=== PATIENT | male | born 1945 | race Hispanic/Latino ===

== ENCOUNTER 2020-10-03 13:17 | Outpatient (CLI) | payer MEDICARE, BC ==
[2020-10-03 14:50] LABS: #Eosinphils 0.1 10x3/uL (0.0-0.5); #Monocytes 0.4 10x3/uL (0.0-1.1); #Neutrophils 2.7 10x3/uL (1.5-8.4); %Basophils 0.9 % (0.0-2.0); %Eosinophils 2.4 % (0.0-6.0); %Lymphocytes 30.3 % (18.0-47.0); %Monocytes 8.4 % (0.0-10.0); %Neutrophils 57.8 % (40.0-75.0); Hemoglobin 10.9 g/dL (13.5-17.5); Mean Corpuscular HGB CONC 32.7 g/dL (32.0-36.0); Mean Corpuscular Hemoglobin 30.4 pg (27.0-33.0); Mean Platelet Volume 10.6 fl (7.4-10.4); Platelet Count 233 10x3/uL (150-450); RBC Distribution Width 14.3 % (11.5-14.5); Red Blood Cell (RBC) Count 3.58 10x6/uL (4.32-5.72); White Blood Cell (WBC) Count 4.6 10x3/uL (3.5-10.5)
[2020-10-03 15:06] LABS: Anion Gap 9 mmol/L (10-20); BUN (Urea Nitrogen) 22 mg/dL (8.4-25.7); Calc. Creatinine Clearance 0 mL/min (70-130); Calcium 9.7 mg/dL (7.8-10.44); Carbon Dioxide 31 mmol/L (23-31); Chloride 103 mmol/L (98-107); Glucose 116 mg/dL (83-110); Potassium 4.4 mmol/L (3.5-5.1); Sodium 139 mmol/L (136-145)
[2020-10-04 03:09] LABS: SARS-CoV-2 PCR by NAA Not Detected (NotDetected)
--- NOTE | 2020-10-05 11:19 | HP ---
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 During evaluation, he was found to have bilateral critical carotid artery disease. The patient was referred by Dr. Bennett in [place] for further evaluation. PAST MEDICAL HISTORY: Includes the above-noted [place] Rudolph syndrome 2, carotid stenosis, prediabetes, hypertension. 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 He was a half pack a day smoker up until 18 years ago. He was incarcerated for about 7 years and currently lives alone. ALLERGIES: NONE KNOWN. MEDICATIONS: Include: 1. Aspirin 81 daily. 2. Plavix 75 daily. 3. He was also taking losartan 25 daily. 4. Amlodipine 5 b.i.d., but these were recently held due to some relative low blood pressures. REVIEW OF SYSTEMS: The patient denies fatigue, chest pain, weight loss, or claudication. In fact, the patient did marathon runs in the past. He denies any dyspnea on exertion or irregular heart rhythm. He has no abdominal complaints. He has nocturia x3. He currently does have some balance difficulties, but is able to speak well. He does admit to some dizziness. PHYSICAL EXAMINATION: VITAL SIGNS: His heart rate is 50, blood pressure 100/56, height 5 feet 11 inches, weight 154. NECK: Bilateral bruits, left louder than right. He is wearing an eye patch on his right eye. CARDIAC: Regular rate and rhythm. No murmurs. LUNGS: Clear to auscultation. ABDOMEN: He has a PEG tube and that is how he maintains hydration and nutrition. EXTREMITIES: He has no peripheral edema. He does have splint on his right lower leg. He has palpable femoral pulses bilaterally as well as a left posterior tibial pulse. The splint on his right leg prevents me from checking pedal pulses on the right foot. At this time, the patient has had a CTA of his neck showing a near-complete occlusion of the proximal cervical right internal carotid artery as well as severe stenosis of the cervical left internal carotid artery. There also appears to be some focal stenosis at the origin of the left common carotid artery. PLAN: At this time as discussed with the patient as well as his legal guardian, plan on TCAR, stent placement in the right internal carotid artery and risks including stroke, have been reviewed and options including medical management with stroke rated up to 50%, if this was to occlude at home. All parties are agreeable to proceed. Job ID: [id number]
== END 2020-10-03 13:18 | disposition home or self-care (01) ==
LOC: LABBT 13:17
PROVIDERS: ATTEND Thoracic Surgery (Cardiothoracic Vascular Surgery)
DX: Z01.818 Encounter for other preprocedural examination (principal); I65.29 Occlusion and stenosis of unspecified carotid artery; Z20.822 Contact with and (suspected) exposure to COVID-19
CPT/HCPCS: 80048; 85025; 93005; U0003; U0005; 87635; 93010

== ENCOUNTER 2020-10-03 13:30 | Inpatient (IN) | payer MEDICARE, BC ==
[2020-10-06] MEDS ORDERED: Protamine Sulfate 50 MG/5 ML VIAL ONE (06:36)
[2020-10-06] MEDS ORDERED: Iothalamate Meglumine 60% 50 ML VIAL FS ONE (06:36)
[2020-10-06] MEDS ORDERED: Heparin 5,000 UNITS/ML VIAL ONE (06:36)
[2020-10-06] MEDS ORDERED: Phenylephrine 10 MG/ML VIAL ONE (07:18)
[2020-10-06] MEDS ORDERED: Fentanyl 100 MCG/2 ML VIAL ONE (07:18)
[2020-10-06] MEDS ORDERED: Promethazine HCl 25 MG/ML VIAL SLOW IVP PRN (09:22)
[2020-10-06] MEDS ORDERED: Promethazine HCl 25 MG/ML VIAL IM PRN (09:22)
[2020-10-06] MEDS ORDERED: Ondansetron HCl/PF 4 MG/2 ML Vial IVP PRN (09:22)
[2020-10-06] MEDS ORDERED: Rocuronium Bromide 10 MG/ML (10ML VIAL) ONE (09:38)
[2020-10-06] MEDS ORDERED: Ketorolac Tromethamine 30 MG/ML VIAL ONE (09:38)
[2020-10-06] MEDS ORDERED: PROPOFOL 200 MG/20 ML VIAL ONE (09:38)
[2020-10-06] MEDS ORDERED: ePHEDrine 50 MG/ML VIAL ONE (09:38)
[2020-10-06] MEDS ORDERED: Dexamethasone 20 MG/5 ML VIAL ONE (09:38)
[2020-10-06] MEDS ORDERED: Glycopyrrolate 0.2 MG/ML 5 ML SYRINGE ONE (09:38)
[2020-10-06] MEDS ORDERED: Lidocaine 1% PF 5 ML VIAL ONE (09:38)
[2020-10-06] MEDS ORDERED: Ondansetron PF 4 MG/2 ML Vial ONE (09:38)
[2020-10-06] MEDS ORDERED: HYDROcodone/Acetaminophen 5/325 mg Tablet PO PRN ×2 (10:34)
[2020-10-06] MEDS ORDERED: Sodium Chloride 0.9% 1,000 ML IV SCH (10:34)
[2020-10-06] MEDS ORDERED: Fentanyl 100 MCG/2 ML VIAL SLOW IVP PRN (10:34)
[2020-10-06] MEDS ORDERED: Pseudoephedrine HCl 30 MG TAB PO PRN (10:34)
[2020-10-06] MEDS ORDERED: Phenylephrine 40 MG in Sodium Chloride 0.9% 250 ML 250 ML IVPB PRN (10:34)
[2020-10-06] MEDS ORDERED: Acetaminophen 325 MG TAB PO PRN (10:34)
[2020-10-06] MEDS ORDERED: Ondansetron PF 4 MG/2 ML Vial IVP PRN (10:34)
[2020-10-06 11:06] VITALS: BMI 21.0
[2020-10-06 11:39] VITALS: BP 156/88
[2020-10-06] MEDS: CEFAZOLIN 2 GM in Premix Bag 1 BAG IVPB SCH (16:52)
[2020-10-06] MEDS ORDERED: Atorvastatin Calcium 20 MG TAB PO SCH (21:00)
[2020-10-07] MEDS: CEFAZOLIN 2 GM in Premix Bag 1 BAG IVPB SCH ×2 (01:08→07:38)
[2020-10-07 08:05] VITALS: TEMP 98
[2020-10-07] MEDS ORDERED: Clopidogrel Bisulfate 75 MG TAB PO SCH (09:00)
[2020-10-07] MEDS ORDERED: Aspirin Chewable 81 MG TAB PO SCH (09:00)
== END 2020-10-07 10:54 | disposition home or self-care (01) | DRG 36 ==
LOC: SURG A 10-06 05:53 → CCU 10-06 10:20 → EDSTATUS 10-06 13:30
PROVIDERS: ADMIT Thoracic Surgery (Cardiothoracic Vascular Surgery); ATTEND Thoracic Surgery (Cardiothoracic Vascular Surgery)
PROC: 037K0DZ Dilation of Right Internal Carotid Artery with Intraluminal Device, Open Approach (ICD-10-PCS; principal; 2020-10-06)
DX: I65.23 Occlusion and stenosis of bilateral carotid arteries (principal); Z20.822 Contact with and (suspected) exposure to COVID-19; Z87.891 Personal history of nicotine dependence
CPT/HCPCS: 76000; 80048; 85025; 87635; 93005; 93010; C1725; C1876; J0690; J1100; J1642; J1644; J1885; J2370; J2405; J2704; J2720; J3010; J3490; Q9961; U0003; U0005

== ENCOUNTER 2020-12-07 13:30 | Outpatient (CLI) | payer MEDICARE, BC ==
[2020-12-07 14:57] LABS: Hemoglobin 11.7 g/dL (13.5-17.5); Mean Corpuscular HGB CONC 32.6 g/dL (32.0-36.0); Mean Corpuscular Hemoglobin 30.6 pg (27.0-33.0); Mean Platelet Volume 10.5 fl (7.4-10.4); Platelet Count 229 10x3/uL (150-450); RBC Distribution Width 12.3 % (11.5-14.5); Red Blood Cell (RBC) Count 3.82 10x6/uL (4.32-5.72); White Blood Cell (WBC) Count 5.1 10x3/uL (3.5-10.5)
[2020-12-07 16:10] LABS: Anion Gap 15 mmol/L (10-20); BUN (Urea Nitrogen) 21 mg/dL (8.4-25.7); Calc. Creatinine Clearance 0 mL/min (70-130); Calcium 9.4 mg/dL (7.8-10.44); Carbon Dioxide 26 mmol/L (23-31); Chloride 102 mmol/L (98-107); Glucose 96 mg/dL (83-110); Potassium 4.5 mmol/L (3.5-5.1); Sodium 138 mmol/L (136-145)
[2020-12-08 01:51] LABS: SARS-CoV-2 PCR by NAA Not Detected (NotDetected)
== END 2020-12-07 13:31 | disposition home or self-care (01) ==
LOC: LABBT 13:30
PROVIDERS: ATTEND Thoracic Surgery (Cardiothoracic Vascular Surgery)
DX: Z01.812 Encounter for preprocedural laboratory examination (principal); Z20.822 Contact with and (suspected) exposure to COVID-19; I65.22 Occlusion and stenosis of left carotid artery
CPT/HCPCS: 80048; 85027; U0003; U0005; 87635

== ENCOUNTER 2020-12-07 14:15 | Inpatient (IN) | payer MEDICARE, BC ==
[2020-12-11 12:00] VITALS: BMI 21.4
[2020-12-12] MEDS ORDERED: Protamine Sulfate 50 MG/5 ML VIAL ONE (08:46)
[2020-12-12] MEDS ORDERED: Heparin 5,000 UNITS/ML VIAL ONE (08:46)
[2020-12-12] MEDS ORDERED: Fentanyl 100 MCG/2 ML VIAL ONE (08:51)
[2020-12-12] MEDS ORDERED: Midazolam HCl 2 mg/2 ml Vial ONE (08:51)
[2020-12-12] MEDS ORDERED: Phenylephrine 10 MG/ML VIAL ONE (08:52)
[2020-12-12] MEDS ORDERED: Ondansetron PF 4 MG/2 ML Vial ONE (09:55)
[2020-12-12] MEDS ORDERED: Glycopyrrolate 0.2 MG/ML 5 ML SYRINGE ONE ×2 (09:55)
[2020-12-12] MEDS ORDERED: Rocuronium Bromide 10 MG/ML (10ML VIAL) ONE (09:55)
[2020-12-12] MEDS ORDERED: PROPOFOL 200 MG/20 ML VIAL ONE (09:55)
[2020-12-12] MEDS ORDERED: Lidocaine 1% PF 5 ML VIAL ONE (09:55)
[2020-12-12] MEDS ORDERED: Dexamethasone 20 MG/5 ML VIAL ONE (09:55)
[2020-12-12] MEDS ORDERED: Ketorolac Tromethamine 30 MG/ML VIAL ONE (09:55)
[2020-12-12] MEDS ORDERED: Ondansetron HCl/PF 4 MG/2 ML Vial IVP PRN (11:04)
[2020-12-12] MEDS ORDERED: traMADol HCl 50 MG TAB PO PRN (11:19)
[2020-12-12] MEDS ORDERED: Acetaminophen 325 MG TAB PO PRN (11:19)
[2020-12-12] MEDS ORDERED: Ondansetron PF 4 MG/2 ML Vial IVP PRN (11:19)
[2020-12-12] MEDS ORDERED: HYDROcodone/Acetaminophen 5/325 mg Tablet PO PRN ×2 (11:19)
[2020-12-12] MEDS ORDERED: Promethazine HCl 25 MG/ML VIAL IM PRN (11:19)
[2020-12-12] MEDS ORDERED: niCARdipine 25 MG in Sodium Chloride 0.9% 250 ML 250 ML IVPB PRN (11:19)
[2020-12-12] MEDS ORDERED: Phenylephrine 40 MG in Sodium Chloride 0.9% 250 ML 250 ML IVPB PRN (11:19)
[2020-12-12] MEDS ORDERED: Fentanyl 100 MCG/2 ML VIAL SLOW IVP PRN ×2 (11:19)
[2020-12-12] MEDS: Sodium Chloride 0.9% 1,000 ML IV SCH ×2 (16:46→17:17)
[2020-12-12] MEDS: CEFAZOLIN 2 GM in Premix Bag 1 BAG IVPB SCH (17:17)
[2020-12-13] MEDS: CEFAZOLIN 2 GM in Premix Bag 1 BAG IVPB SCH (00:24)
[2020-12-13 06:35] VITALS: TEMP 98
[2020-12-13] MEDS ORDERED: Aspirin Chewable 81 MG TAB PO SCH (09:00)
[2020-12-13] MEDS ORDERED: Clopidogrel Bisulfate 75 MG TAB PO SCH (09:00)
[2020-12-13] MEDS ORDERED: Atorvastatin Calcium 20 MG TAB PO SCH (21:00)
== END 2020-12-13 08:39 | disposition home or self-care (01) | DRG 35 ==
LOC: SURG A 12-12 06:37 → CCU 12-12 15:40
PROVIDERS: ADMIT Thoracic Surgery (Cardiothoracic Vascular Surgery); ATTEND Thoracic Surgery (Cardiothoracic Vascular Surgery)
PROC: 037L3DZ Dilation of Left Internal Carotid Artery with Intraluminal Device, Percutaneous Approach (ICD-10-PCS; principal; 2020-12-12)
DX: I65.22 Occlusion and stenosis of left carotid artery (principal); B02.21 Postherpetic geniculate ganglionitis; I10 Essential (primary) hypertension; R73.03 Prediabetes; Z83.3 Family history of diabetes mellitus; Z82.49 Family history of ischemic heart disease and other diseases of the circulatory system
CPT/HCPCS: 76000; C1725; C1876; J0690; J1100; J1642; J1644; J1885; J2250; J2370; J2405; J2704; J2720; J3010; J7620